=== PATIENT | male | born 1935 | race Caucasian/White ===

== ENCOUNTER 2021-03-06 14:51 | Emergency (ER) | payer MEDICARE ==
[~2021-03-06] VITALS: Ht 167.6 cm; Wt 72.7 kg
[~2021-03-06 14:51] MED LIST: ASPI81TA52 PO; ATOR10TA87 PO; CARV-50 PO; CITA20TA27 PO; FLO0.4C PO; FURO-150 PO; LEVO25TA2 PO; NITR0.4T51 SL; Proair; SPIR25TA5 PO; spiriva
[2021-03-06 15:43] LABS: BASOPHILS % (AUTO) 0.6 % (0-1); EOSINOPHILS # (AUTO) 0.4 X10'3 (0-0.9); EOSINOPHILS % (AUTO) 5.7 % (0-6); HEMATOCRIT 35.1 % (42.0-52.0); HEMOGLOBIN 11.4 g/dl (14.0-17.9); LYMPHOCYTES # (AUTO) 1.4 X10'3 (1.1-4.8); LYMPHOCYTES % (AUTO) 20.9 % (21-51); MEAN CORPUSCULAR HEMOGLOBIN 33.3 PG (27.0-31.0); MEAN CORPUSCULAR HGB CONC 32.4 g/dL (33.0-36.5); MEAN CORPUSCULAR VOLUME 102.9 FL (78-98); MEAN PLATELET VOLUME 7.7 FL (7.4-10.4); MONOCYTES # (AUTO) 0.6 X10'3 (0-0.9); MONOCYTES % (AUTO) 8.4 % (2-12); NEUTROPHILS # (AUTO) 4.4 X10'3 (1.8-7.7); NEUTROPHILS % (AUTO) 64.4 % (42-75); PLATELET COUNT 215 X10'3 (140-440); RED BLOOD COUNT 3.41 X10'6 (4.70-6.10); RED CELL DISTRIBUTION WIDTH 13.6 % (11.5-14.5); WHITE BLOOD COUNT 6.9 X10'3 (4.5-11.0)
[2021-03-06 15:59] LABS: ALANINE AMINOTRANSFERASE 20 U/L (12-78); ALBUMIN 3.7 G/DL (3.4-5.0); ALBUMIN/GLOBULIN RATIO 0.9 (1.1-1.5); ALKALINE PHOSPHATASE 64 IU/L (46-116); ANION GAP 13 (8-16); ASPARTATE AMINO TRANSFERASE 22 U/L (10-37); BILIRUBIN,TOTAL 0.4 MG/DL (0.1-1.0); BLOOD UREA NITROGEN 65 MG/DL (7-18); BUN/CREATININE RATIO 23.2 (5.4-32.0); CALCIUM 8.9 MG/DL (8.5-10.1); CHLORIDE 106 MMOL/L (99-107); GLUCOSE 129 MG/DL (70-104); POTASSIUM 4.4 MMOL/L (3.5-5.1); SODIUM 142 MMOL/L (135-145); TOTAL CARBON DIOXIDE 22.9 MMOL/L (24-32); eGFR 22 ML/MIN
[2021-03-06 16:07] LABS: MAGNESIUM 2.4 MG/DL (1.5-2.4)
[2021-03-06] MEDS ORDERED: magnesium Cl slow-release 64mg tablet PO PRN (17:55)
[2021-03-06] MEDS ORDERED: dextrose 50%-water 50ml dispensing syringe IV PRN ×2 (17:55)
[2021-03-06] MEDS ORDERED: HYDROcodone/acetaminophen 5mg/325mg tablet PO PRN (17:55)
[2021-03-06] MEDS ORDERED: dextrose ORAL solution 15 GM/59 ML bottle PO PRN ×2 (17:55)
[2021-03-06] MEDS ORDERED: mag hydrox/Alum hydrox/simeth 30ml oral suspension PO PRN (17:55)
[2021-03-06] MEDS ORDERED: acetaminophen 325mg tablet PO PRN ×2 (17:55)
[2021-03-06] MEDS ORDERED: HYDROcodone/acetaminophen 10/325mg tab PO PRN (17:55)
[2021-03-06] MEDS ORDERED: normal saline 1000ml 1,000 ML IV SCH (17:55)
[2021-03-06] MEDS ORDERED: MESSAGE TO PHARMACY PO ONE (17:55)
[2021-03-06] MEDS ORDERED: glucagon, human recombinant 1mg kit SUBCUT PRN (17:55)
[2021-03-06] MEDS ORDERED: bisacodyl 10mg suppository rectal RC PRN (17:55)
[2021-03-06] MEDS ORDERED: potassium Cl 40MEQ/1/2NS 520ml 520 ML IV PRN ×2 (17:55)
[2021-03-06] MEDS ORDERED: diphenhydrAMINE 25mg capsule PO PRN (17:55)
[2021-03-06] MEDS ORDERED: magnesium 2GM in 50ml NS 50 ML IV PRN (17:55)
[2021-03-06] MEDS ORDERED: magnesium 4gm in 100ml NS 100 ML IV PRN (17:55)
[2021-03-06] MEDS ORDERED: potassium Cl 20 mEq SR tablet PO PRN ×2 (17:55)
[2021-03-06] MEDS ORDERED: acetaminophen 650mg rectal suppository RC PRN (17:55)
[2021-03-06] MEDS ORDERED: magnesium hydroxide 30ml (MOM) UD suspension PO PRN (17:55)
[2021-03-06] MEDS ORDERED: ondansetron/PF 4mg/2ml inj IV PRN (17:55)
[2021-03-06] MEDS ORDERED: insulin Lispro (HumaLOG) vial - multi-dose SQ SCH (17:55)
[2021-03-06] MEDS ORDERED: morphine 2 MG/ML inj. syringe IV PRN ×2 (17:55)
[2021-03-06] MEDS ORDERED: FURO40TA4 PO (17:59)
[2021-03-06] MEDS ORDERED: BISO5TAB29 PO (17:59)
[2021-03-06] MEDS ORDERED: ISOS30TA84 PO (17:59)
[2021-03-06] MEDS ORDERED: TIOT4MIS3 INH (17:59)
[2021-03-06 18:19] LABS: HEMOGLOBIN A1C 6.5 % (4.5-6.2)
[2021-03-06 18:25] LABS: CHOL/HDL RATIO 2.6 (0.00-4.99); CHOLESTEROL 125 MG/DL (0-200); HDL CHOLESTEROL 49 MG/DL (35-60); LDL CHOLESTEROL 59 MG/DL (50-100); TRIGLYCERIDES 88 MG/DL (20-135)
[2021-03-06 19:58] LABS: CLARITY,URINE CLEAR (Clear); COLOR,URINE YELLOW (Yellow); GLUCOSE, URINE NEGATIVE (Neg); KETONES,URINE NEGATIVE (Neg); LEUKOCYTE ESTERASE ,URINE NEGATIVE (Neg); NITRITES, URINE NEGATIVE (Neg); OCCULT BLOOD,URINE NEGATIVE (Neg); PROTEIN,URINE NEGATIVE (Neg); UROBILINOGEN,URINE 0.2 E.U/dL (0.2-1.0)
[2021-03-06] MEDS ORDERED: heparin, porcine 5000 units/ml vial SQ SCH (20:00)
[2021-03-06] MEDS ORDERED: K and/or MAG REPLACEMENT MC SCH (20:00)
[2021-03-06 20:01] LABS: UA COLLECTION TYPE CLN CATCH MIDSTREAM
[2021-03-06] MEDS ORDERED: insulin glargine (Lantus) pen - multi-dose SQ SCH (21:00)
--- NOTE | 2021-03-06 22:29 | NUR ---
pt awaiting IPA - at bedside. is disabled and pt is 's primary and sole caregiver. She is unable to be left unattended and uses a walker. was found on the floor in pts room after sliding out of chair. She denies injury and was assisted back to the chair. The patients is a fall risk and is unable to follow safety instructions to stay seated. The is yelling at her to sit down and telling her to "shup up" when she speaks. I have advised the patient that she is unable to go upstairs when he is admitted. He reports that the hospitalist was aware of this and told him it wouldn't be a problem. I contacted the supervisor [facility] to see if arrangements had been made and he was not aware of this. Ranjith, supervisor [facility] and I spoke with patient at length to discuss options of who could potentially watch his . They were unable to come up with a plan. pt is inquiring how serious his condition is and if he needs to even be here. He was advised that it is our recommendation that he be admitted and stay the night for additional testing in the morning and that if he desired to leave that he would need to sign out AMA - pt was educated on AMA process and wishes to sign out AMA - he is instructed to contact 911 if anything changes once at home and we would be happy to see him again. pt will be given a taxi ride home for him and his . He requires o2 and has o2 with him for transport. his concentrator had a low battery and will be charged prior to leaving. MD Nix, night hospitalist aware that pt may AMA - we will recontact her prior to him acutally leaving.
[2021-03-06 23:51] VITALS: BP 138/57
[2021-03-07] MEDS ORDERED: CefTRIAXone/D5W-Rocephin 1gm 50 ML IV SCH (00:15)
[2021-03-07] MEDS ORDERED: azithromycin 250mg tablet PO SCH (00:15)
[2021-03-07] MEDS ORDERED: isosorbide mononitrate 30mg tab.SR.24H PO SCH (08:00)
[2021-03-07] MEDS ORDERED: atorvastatin 10mg tablet PO SCH ×2 (08:00)
[2021-03-07] MEDS ORDERED: aspirin 81mg tablet.DR PO SCH ×2 (08:00)
[2021-03-07] MEDS ORDERED: citalopram 20mg tablet PO SCH (08:00)
[2021-03-07] MEDS ORDERED: atenolol 25mg tablet PO SCH (08:00)
[2021-03-07] MEDS ORDERED: furosemide 40mg tablet PO SCH (08:00)
[2021-03-07] MEDS ORDERED: Stiolto Respimat Inhal Spray IH SCH (08:00)
[2021-03-07] MEDS ORDERED: levoTHYROXINE 25mcg tablet PO SCH (08:00)
[2021-03-07] MEDS ORDERED: tamsulosin 0.4mg capsule PO SCH (08:00)
[2021-03-07] MEDS ORDERED: spironolactone 25 MG tablet PO SCH (08:00)
== END 2021-03-07 00:20 | disposition left against medical advice (07) ==
LOC: ER 14:51 → UNDOADMIN 17:53 → ED HOLD 17:53 → UNDODISIN 03-07 00:40
DX: R55 Syncope and collapse (principal); N18.9 Chronic kidney disease, unspecified; I50.9 Heart failure, unspecified; E78.00 Pure hypercholesterolemia, unspecified; E03.9 Hypothyroidism, unspecified; M19.90 Unspecified osteoarthritis, unspecified site; F32.9 Major depressive disorder, single episode, unspecified; Z85.9 Personal history of malignant neoplasm, unspecified; Z95.1 Presence of aortocoronary bypass graft; Z98.890 Other specified postprocedural states; Z79.82 Long term (current) use of aspirin; Z79.899 Other long term (current) drug therapy
CPT/HCPCS: 36415; 70450; 71045; 80053; 80061; 81003; 83036; 83735; 83880; 84484; 85025; 93005; 96360; 96372; 99285; J1644; J7030; G0378; J1815